=== PATIENT | female | born 1990 | race Caucasian/White ===

== ENCOUNTER 2016-07-12 12:17 | Emergency (ER) | payer OTHER ==
[~2016-07-12] VITALS: Ht 170.2 cm; Wt 112.2 kg
[~2016-07-12 12:17] MED LIST: ALPRAZOLAM0.5 MG PO; ALPRAZOLAM1 MG PO; BACLOFEN10 MG PO; CEFEPIME-D2 GM/50 ML IV; CEFTRIAXONE2 G1 IV; GABAPENTIN100 MG PO; GAS FREE125 MG PO; IRON325 MG PO; LOSARTAN POTASS50 MG PO; MULTIVITAMIN1 EAC2 PO; OXYCODONE HCL15 MG PO; OXYCODONE-APAP1 EACH PO; OXYCONTIN60 MG PO; OXYCONTIN80 MG PO; PEN-VEE K,VEET500 MG PO; RANITIDINE HCL150 MG PO; SENNA PLUS TAB1 EACH PO; SENOKOT,SENN1 TABLET PO; TOVIAZ8 MG PO; VENLAFAXINE HC150 M1 PO; VITAMIN D1000 UNIT PO; VITAMIN D31000 UNI2 PO; XARELTO1 EACH PO; ZOLOFT100 MG PO
[2016-07-12 12:52] LABS: EOSINOPHIL (%) 2.3 % (0-5); EOSINOPHIL COUNT 0.2 K/uL (0-0.3); HEMATOCRIT 35.3 % (36.0-46.0); IMMATURE GRANULOCYTE (%) 0.3 % (0.0-0.7); INSTRUMENT ABS NEUTROPHIL CT 4.9 K/uL; MCH 25.9 PG (29.0-34.0); MCHC 31.4 G/DL (30.0-36.0); MCV 82.3 FL (83-99); MEAN PLAT.VOLUME 9.1 uM^3 (9.5-12.4); MONOCYTE (%) 8.3 % (3-12); MONOCYTE COUNT 0.6 K/uL (0-0.8); NEUTROPHIL COUNT 4.9 K/uL (1.8-6.4); PLATELET COUNT 240 K/uL (156-360); RBC DIS.WIDTH-CV 14.1 % (11.8-14.6); RED BLOOD COUNT 4.29 M/uL (3.80-5.20); WHITE BLOOD COUNT 7.7 K/uL (4.1-10.2)
[2016-07-12 13:04] LABS: CHLORIDE 106 mEq/L (99-109); POTASSIUM 3.6 mEq/L (3.7-5.4); SODIUM 139 mEq/L (136-147)
[2016-07-12 13:05] LABS: GLUCOSE 103 mg/dL (70-99)
[2016-07-12 13:07] LABS: ANION GAP 9 MEQ/L (2-14)
[2016-07-12 13:09] LABS: GFR ESTIMATE (CALCULATED) > 59 mL/min/
[2016-07-12 13:10] LABS: UREA NITROGEN (BUN) 6 mg/dL (9-23)
[2016-07-12 13:11] LABS: INTER. NORMALIZED RATIO 1.1; PROTHROMBIN TIME 11.3 (9.2-11.2)
[2016-07-12 13:17] LABS: QUANTITATIVE HCG < 4.0 MIU/ML
[2016-07-12] MEDS ORDERED: TYLENOL WITH C1 EACH PO (13:27)
[2016-07-12 13:42] LABS: ADD MIUA? YES; BILIRUBIN NEGATIVE; BLOOD MODERATE; COLOR YELLOW ((YELLOW)); GLUCOSE (STRIP) NEGATIVE; KETONES NEGATIVE; LEUKOCYTES LARGE; NITRITE NEGATIVE; PROTEIN (STRIP) NEGATIVE; SPECIFIC GRAVITY 1.005 (1.000-1.030); UROBILINOGEN 0.2 MG/DL (0.2-1.0)
[2016-07-12 13:49] LABS: BUDDING YEAST 3+; UNCLASSIFIED CRYSTALS 2+ /HPF; WHITE BLOOD CELLS CLUMP MANY /HPF (0-5)
[2016-07-12] MEDS ORDERED: CIPRO500 MG PO ×3 (13:54→14:04)
[2016-07-12 14:02] LABS: BACTERIA 2+ /HPF; EPITHELIAL CELLS 1+ /HPF; MUCUS NONE SEEN /LPF; UCUL ADDED? YES; WHITE BLOOD CELLS TNTC /HPF (0-5)
[2016-07-12 14:55] VITALS: BP 133/84
== END 2016-07-12 14:55 | disposition home or self-care (01) ==
LOC: EME 12:17
PROVIDERS: Emergency Medicine
DX: K92.1 Melena (principal); R82.99 Other abnormal findings in urine; G82.20 Paraplegia, unspecified; Z96.0 Presence of urogenital implants; I10 Essential (primary) hypertension; Z87.440 Personal history of urinary (tract) infections; Z79.891 Long term (current) use of opiate analgesic; F17.200 Nicotine dependence, unspecified, uncomplicated
CPT/HCPCS: 80048; 81003; 84702; 85025; 85610; 87077; 87086; 87186; 99281; 99284

== ENCOUNTER 2016-08-10 12:01 | Inpatient (IN) | payer OTHER ==
[~2016-08-10] VITALS: Ht 170.2 cm; Wt 113.2 kg
[~2016-08-10 12:01] MED LIST changes: +CIPRO500 MG PO; +TYLENOL WITH C1 EACH PO
[2016-08-10 12:57] LABS: EOSINOPHIL (%) 4.1 % (0-5); EOSINOPHIL COUNT 0.3 K/uL (0-0.3); IMMATURE GRANULOCYTE (%) 0.3 % (0.0-0.7); INSTRUMENT ABS NEUTROPHIL CT 3.7 K/uL; LYMPHOCYTE COUNT 2.1 K/uL (1.0-2.8); MCHC 31.4 G/DL (30.0-36.0); MCV 82.7 FL (83-99); MEAN PLAT.VOLUME 9.6 uM^3 (9.5-12.4); MONOCYTE COUNT 0.3 K/uL (0-0.8); NEUTROPHIL (%) 57.4 % (45-76); NEUTROPHIL COUNT 3.7 K/uL (1.8-6.4); PLATELET COUNT 239 K/uL (156-360); RBC DIS.WIDTH-SD 41.8 % (39-53); RED BLOOD COUNT 4.23 M/uL (3.80-5.20)
[2016-08-10 12:58] LABS: WHITE BLOOD COUNT 6.4 K/uL (4.1-10.2)
[2016-08-10 13:05] LABS: CHLORIDE 108 mEq/L (99-109); POTASSIUM 3.5 mEq/L (3.7-5.4); SODIUM 141 mEq/L (136-147)
[2016-08-10 13:07] LABS: GLUCOSE 103 mg/dL (70-99)
[2016-08-10 13:08] LABS: ANION GAP 11 MEQ/L (2-14)
[2016-08-10 13:11] LABS: GFR ESTIMATE (CALCULATED) > 59 mL/min/
[2016-08-10 13:12] LABS: UREA NITROGEN (BUN) 4 mg/dL (9-23)
[2016-08-10 14:51] LABS: 6-HOUR TOBRAMYCIN 0.7 UG/ML
[2016-08-10] MEDS ORDERED: NEURONTIN300 MG PO (15:24)
[2016-08-10 16:22] VITALS: BP 114/57
[2016-08-10] MEDS ORDERED: PROMETHAZINE HC25 M1 PO (18:03)
[2016-08-10] MEDS ORDERED: NICODERM CQ1 EAC2 TD (18:06)
[2016-08-10 20:11] VITALS: BP 144/74
[2016-08-10 23:38] VITALS: BP 136/72
[2016-08-11 03:28] VITALS: BP 130/78
[2016-08-11 07:16] LABS: HEMATOCRIT 32.1 % (36.0-46.0); MCHC 31.5 G/DL (30.0-36.0); MCV 82.5 FL (83-99); MEAN PLAT.VOLUME 9.1 uM^3 (9.5-12.4); PLATELET COUNT 207 K/uL (156-360); RBC DIS.WIDTH-CV 13.9 % (11.8-14.6); RBC DIS.WIDTH-SD 41.6 % (39-53); RED BLOOD COUNT 3.89 M/uL (3.80-5.20)
[2016-08-11 07:51] LABS: ANION GAP 6 MEQ/L (2-14); CHLORIDE 106 MEQ/L (99-109); GFR ESTIMATE (CALCULATED) > 59 mL/min/; GLUCOSE 88 mg/dL (70-99); SAMPLE HEMOLYSIS CHECK 0; SAMPLE ICTERIC CHECK 0; SAMPLE LIPEMIA CHECK 0; SODIUM 139 MEQ/L (136-147); UREA NITROGEN (BUN) 6 mg/dL (9-23)
[2016-08-11 07:52] LABS: POTASSIUM 4.6 MEQ/L (3.7-5.4)
[2016-08-11 08:12] VITALS: BP 138/83
[2016-08-11 11:18] VITALS: BP 123/67
[2016-08-11 15:30] VITALS: BP 143/91
[2016-08-11 20:03] VITALS: BP 136/84
[2016-08-12 04:00] VITALS: BP 131/76
[2016-08-12 07:38] VITALS: BP 129/89
[2016-08-12 07:44] LABS: EOSINOPHIL (%) 1.9 % (0-5); EOSINOPHIL COUNT 0.1 K/uL (0-0.3); HEMATOCRIT 32.4 % (36.0-46.0); IMMATURE GRANULOCYTE (%) 0.2 % (0.0-0.7); INSTRUMENT ABS NEUTROPHIL CT 2.6 K/uL; LYMPHOCYTE COUNT 1.7 K/uL (1.0-2.8); MCH 25.6 PG (29.0-34.0); MCHC 30.6 G/DL (30.0-36.0); MCV 83.7 FL (83-99); MEAN PLAT.VOLUME 9.9 uM^3 (9.5-12.4); MONOCYTE (%) 7.9 % (3-12); MONOCYTE COUNT 0.4 K/uL (0-0.8); NEUTROPHIL COUNT 2.6 K/uL (1.8-6.4); PLATELET COUNT 183 K/uL (156-360); RBC DIS.WIDTH-CV 13.8 % (11.8-14.6); RBC DIS.WIDTH-SD 41.6 % (39-53); RED BLOOD COUNT 3.87 M/uL (3.80-5.20); WHITE BLOOD COUNT 4.8 K/uL (4.1-10.2)
[2016-08-12 08:03] LABS: ANION GAP 5 MEQ/L (2-14); CHLORIDE 105 MEQ/L (99-109); GFR ESTIMATE (CALCULATED) > 59 mL/min/; GLUCOSE 81 mg/dL (70-99); POTASSIUM 4.5 MEQ/L (3.7-5.4); SAMPLE HEMOLYSIS CHECK 0; SAMPLE ICTERIC CHECK 0; SAMPLE LIPEMIA CHECK 0; SODIUM 140 MEQ/L (136-147); UREA NITROGEN (BUN) 6 mg/dL (9-23)
[2016-08-12 12:19] VITALS: BP 152/82
[2016-08-12 15:38] VITALS: BP 169/97
[2016-08-12 20:14] VITALS: BP 122/72
[2016-08-12 23:25] VITALS: BP 159/90
[2016-08-13 03:45] LABS: ADD MIUA? YES; BILIRUBIN NEGATIVE; BLOOD SMALL; COLOR YELLOW ((YELLOW)); GLUCOSE (STRIP) NEGATIVE; KETONES NEGATIVE; LEUKOCYTES NEGATIVE; NITRITE NEGATIVE; PROTEIN (STRIP) NEGATIVE; SPECIFIC GRAVITY 1.006 (1.000-1.030); UROBILINOGEN 0.2 MG/DL (0.2-1.0)
[2016-08-13 04:00] LABS: BACTERIA RARE /HPF; EPITHELIAL CELLS RARE /HPF; MUCUS TRACE /LPF; UCUL ADDED? NO
[2016-08-13 04:07] VITALS: BP 158/64
[2016-08-13 08:33] VITALS: BP 172/93
[2016-08-13 12:05] VITALS: BP 141/89
[2016-08-13 16:03] VITALS: BP 144/65
[2016-08-13 20:26] VITALS: BP 137/85
[2016-08-14 00:01] VITALS: BP 156/97
[2016-08-14 07:00] VITALS: BP 146/95
[2016-08-14 07:19] LABS: BASOPHIL COUNT 0.1 K/uL (0-0.1); EOSINOPHIL (%) 1.6 % (0-5); EOSINOPHIL COUNT 0.1 K/uL (0-0.3); HEMATOCRIT 34.1 % (36.0-46.0); IMMATURE GRANULOCYTE (%) 0.3 % (0.0-0.7); INSTRUMENT ABS NEUTROPHIL CT 4.8 K/uL; MCH 25.7 PG (29.0-34.0); MCHC 31.7 G/DL (30.0-36.0); MEAN PLAT.VOLUME 9.4 uM^3 (9.5-12.4); MONOCYTE (%) 4.8 % (3-12); MONOCYTE COUNT 0.4 K/uL (0-0.8); NEUTROPHIL (%) 65.4 % (45-76); NEUTROPHIL COUNT 4.8 K/uL (1.8-6.4); RBC DIS.WIDTH-CV 13.4 % (11.8-14.6); RED BLOOD COUNT 4.21 M/uL (3.80-5.20)
[2016-08-14 07:25] LABS: PLATELET COUNT 248 K/uL (156-360); WHITE BLOOD COUNT 7.3 K/uL (4.1-10.2)
[2016-08-14 07:34] LABS: ANION GAP 8 MEQ/L (2-14); CHLORIDE 103 MEQ/L (99-109); GFR ESTIMATE (CALCULATED) > 59 mL/min/; GLUCOSE 81 mg/dL (70-99); POTASSIUM 4.1 MEQ/L (3.7-5.4); SAMPLE HEMOLYSIS CHECK 0; SAMPLE ICTERIC CHECK 0; SAMPLE LIPEMIA CHECK 0; SODIUM 140 MEQ/L (136-147); UREA NITROGEN (BUN) 6 mg/dL (9-23)
[2016-08-14 10:57] VITALS: BP 156/100
[2016-08-14 16:03] VITALS: BP 129/77
[2016-08-14 19:33] VITALS: BP 134/81
[2016-08-15 00:05] VITALS: BP 114/68
[2016-08-15 04:00] VITALS: BP 124/68
[2016-08-15 07:53] VITALS: BP 130/79
[2016-08-15 12:04] VITALS: BP 133/72
[2016-08-15 15:57] VITALS: BP 113/77
[2016-08-15 16:45] LABS: POINT-OF-CARE METER ID UU14188625
[2016-08-15 20:00] VITALS: BP 139/75
[2016-08-16] VITALS: BP 119/64
[2016-08-16 03:46] VITALS: BP 110/61
[2016-08-16 07:30] VITALS: BP 128/79
[2016-08-16 10:57] VITALS: BP 131/91
[2016-08-16 15:21] VITALS: BP 137/73
[2016-08-16 19:38] VITALS: BP 132/85
[2016-08-17] VITALS: BP 104/48
[2016-08-17 04:00] VITALS: BP 128/77
[2016-08-17 07:56] VITALS: BP 133/82
[2016-08-17 11:14] VITALS: BP 127/75
[2016-08-17] MEDS ORDERED: MERREM1 GM IV (13:18)
[2016-08-17 15:14] VITALS: BP 135/85
== END 2016-08-17 20:10 | disposition home health service (06) | DRG 871 ==
LOC: EME → EDBD 12:01 → EME 12:01 → 5SOUTH 14:12 → EDOF 14:12 → 5SOUTH 16:14
PROVIDERS: Emergency Medicine; Hospitalist; Internal Medicine
DX: A41.2 Sepsis due to unspecified staphylococcus (principal); L89.314 Pressure ulcer of right buttock, stage 4; M86.60 Other chronic osteomyelitis, unspecified site; R78.81 Bacteremia; G82.20 Paraplegia, unspecified; L89.890 Pressure ulcer of other site, unstageable; N39.0 Urinary tract infection, site not specified; L89.610 Pressure ulcer of right heel, unstageable; G89.29 Other chronic pain; I10 Essential (primary) hypertension; M54.9 Dorsalgia, unspecified; F32.9 Major depressive disorder, single episode, unspecified; I89.0 Lymphedema, not elsewhere classified; B37.9 Candidiasis, unspecified; K21.9 Gastro-esophageal reflux disease without esophagitis; I87.8 Other specified disorders of veins; G89.4 Chronic pain syndrome; F17.200 Nicotine dependence, unspecified, uncomplicated; E87.6 Hypokalemia; G43.909 Migraine, unspecified, not intractable, without status migrainosus; Z96.0 Presence of urogenital implants; Z88.1 Allergy status to other antibiotic agents; Z91.048 Other nonmedicinal substance allergy status; Z86.718 Personal history of other venous thrombosis and embolism; Z88.8 Allergy status to other drugs, medicaments and biological substances
CPT/HCPCS: 71010; 80048; 80200; 81003; 82565; 82948; 84520; 85025; 85027; 87040; 99281; 99285; A6260; J0690; J0692; J1200; J1644; J1650; J2020; J2185; J2250; J2405; J3010; J3260; J3480; J7030; J7050; Q0169; S0020

== ENCOUNTER 2016-08-24 10:39 | Day surgery (SDC) | payer OTHER ==
[~2016-08-24] VITALS: Ht 167.6 cm; Wt 117.3 kg
[2016-08-24 10:37] VITALS: BP 139/93
[~2016-08-24 10:39] MED LIST changes: +MERREM1 GM IV; +NEURONTIN300 MG PO; +NICODERM CQ1 EAC2 TD; +PROMETHAZINE HC25 M1 PO
[2016-08-24 16:45] VITALS: BP 133/86
[2016-08-24 20:12] VITALS: BP 135/79
[2016-08-24 23:43] VITALS: BP 109/64
[2016-08-25 03:37] VITALS: BP 115/62
[2016-08-25 08:00] VITALS: BP 124/77
== END 2016-08-25 16:26 | disposition home or self-care (01) ==
LOC: SDC 10:39 → 2SOUTH 14:50 → 2EAST 14:50 → SDC 15:05 → 2EAST 16:35
DX: L89.314 Pressure ulcer of right buttock, stage 4 (principal); G82.20 Paraplegia, unspecified; Z87.828 Personal history of other (healed) physical injury and trauma; Z87.440 Personal history of urinary (tract) infections; L89.610 Pressure ulcer of right heel, unstageable; L89.620 Pressure ulcer of left heel, unstageable; I89.0 Lymphedema, not elsewhere classified; I10 Essential (primary) hypertension; Z86.718 Personal history of other venous thrombosis and embolism; F17.210 Nicotine dependence, cigarettes, uncomplicated; K21.9 Gastro-esophageal reflux disease without esophagitis
CPT/HCPCS: 87070; 87075; 87205; 88304; A6260; G0378; J0330; J0690; J1100; J1650; J2185; J2250; J2405; J2710; J3010; J7050

== ENCOUNTER → 2016-12-14 | Outpatient (CLI) | payer OTHER ==
[~2016-12-14] VITALS: Ht 144.8 cm; Wt 112.0 kg
[~2016-12-14] MED LIST changes: +CEFEPIME HCL2 GM IV; +XARELTO15 MG PO
[2016-12-14 08:57] VITALS: BP 100/63
== END | disposition home or self-care (01) ==
LOC: IVINF 06:56
DX: Z45.2 Encounter for adjustment and management of vascular access device (principal)
CPT/HCPCS: 36593; J2997

== ENCOUNTER 2017-03-03 17:51 | Day surgery (SDC) | payer OTHER ==
[~2017-03-03] VITALS: Ht 167.6 cm; Wt 118.8 kg
[2017-03-03 18:56] LABS: HEMATOCRIT 38.3 % (36.0-46.0); MCH 27.8 PG (29.0-34.0); MCHC 33.4 G/DL (30.0-36.0); MCV 83.3 FL (83-99); MEAN PLAT.VOLUME 9.1 uM^3 (9.5-12.4); PLATELET COUNT 239 K/uL (156-360); RBC DIS.WIDTH-CV 13.4 % (11.8-14.6); RBC DIS.WIDTH-SD 40.1 % (39-53); WHITE BLOOD COUNT 12.1 K/uL (4.1-10.2)
[2017-03-03 19:11] LABS: CHLORIDE 106 mEq/L (99-109); POTASSIUM 4.4 mEq/L (3.7-5.4); SODIUM 138 mEq/L (136-147)
[2017-03-03 19:13] LABS: GLUCOSE 87 mg/dL (70-99)
[2017-03-03 19:15] LABS: ANION GAP 7 MEQ/L (2-14); TOTAL BILIRUBIN 0.2 mg/dL (0.0-1.0)
[2017-03-03 19:17] LABS: ALKALINE PHOSPHATASE 88 IU/L (3-129); GFR ESTIMATE (CALCULATED) > 59 mL/min/
[2017-03-03 19:18] LABS: UREA NITROGEN (BUN) 8 mg/dL (9-23)
[2017-03-03 19:19] LABS: QUANTITATIVE HCG < 4.0 MIU/ML
[2017-03-03 22:20] LABS: ADD MIUA? YES; BILIRUBIN NEGATIVE; BLOOD NEGATIVE; COLOR YELLOW ((YELLOW)); GLUCOSE (STRIP) NEGATIVE; KETONES NEGATIVE; LEUKOCYTES MODERATE; NITRITE NEGATIVE; PROTEIN (STRIP) NEGATIVE; UROBILINOGEN 0.2 MG/DL (0.2-1.0)
[2017-03-03 22:37] LABS: BACTERIA RARE /HPF; EPITHELIAL CELLS 1+ /HPF; MUCUS TRACE /LPF; UCUL ADDED? YES
[2017-03-03 22:58] LABS: SPECIFIC GRAVITY 1.064 (1.000-1.030)
[2017-03-04 02:14] VITALS: BP 129/60
[2017-03-04 03:54] VITALS: BP 106/56
[2017-03-04 08:49] VITALS: BP 105/55
[2017-03-04 09:03] VITALS: BP 115/60
[2017-03-04 12:20] VITALS: BP 112/62
[2017-03-04 16:23] VITALS: BP 136/73
== END 2017-03-04 18:25 | disposition home or self-care (01) ==
LOC: EME 17:51 → SDC 23:59 → 2SOUTH 03-04 00:18 → ENRESERV 03-04 00:20 → CANRESERV 03-04 00:20 → ENRESERV 03-04 00:25 → 3EAST 03-04 02:10
PROC: 0DTJ0ZZ Resection of Appendix, Open Approach (ICD-10-PCS; principal; 2017-03-04)
DX: K35.80 Unspecified acute appendicitis (principal); G82.20 Paraplegia, unspecified; L97.529 Non-pressure chronic ulcer of other part of left foot with unspecified severity; F41.8 Other specified anxiety disorders; K21.9 Gastro-esophageal reflux disease without esophagitis; I10 Essential (primary) hypertension; Z87.828 Personal history of other (healed) physical injury and trauma; Z88.1 Allergy status to other antibiotic agents; F17.210 Nicotine dependence, cigarettes, uncomplicated; Z87.440 Personal history of urinary (tract) infections; I87.8 Other specified disorders of veins
CPT/HCPCS: 71010; 73630; 74177; 80053; 81003; 83605; 84702; 85027; 87040; 87077; 87086; 87186; 88304; 99281; 99285; G0378; J0744; J1170; J1335; J1644; J2270; J3010; J7030; J7050; J7120; S0030

== ENCOUNTER 2017-03-09 19:33 | Emergency (ER) | payer OTHER ==
[~2017-03-09] VITALS: Ht 167.6 cm; Wt 110.5 kg
[2017-03-09 21:12] LABS: HEMATOCRIT 37.6 % (36.0-46.0); MCH 27.7 PG (29.0-34.0); MCHC 32.7 G/DL (30.0-36.0); MCV 84.7 FL (83-99); MEAN PLAT.VOLUME 9.3 uM^3 (9.5-12.4); PLATELET COUNT 301 K/uL (156-360); RBC DIS.WIDTH-CV 13.6 % (11.8-14.6); RBC DIS.WIDTH-SD 42.1 % (39-53); RED BLOOD COUNT 4.44 M/uL (3.80-5.20); WHITE BLOOD COUNT 10.2 K/uL (4.1-10.2)
[2017-03-09 21:24] LABS: CHLORIDE 107 mEq/L (99-109); SODIUM 138 mEq/L (136-147)
[2017-03-09 21:26] LABS: GLUCOSE 89 mg/dL (70-99)
[2017-03-09 21:27] LABS: ANION GAP 7 MEQ/L (2-14)
[2017-03-09 21:30] LABS: GFR ESTIMATE (CALCULATED) > 59 mL/min/
[2017-03-09 21:31] LABS: UREA NITROGEN (BUN) 7 mg/dL (9-23)
[2017-03-09 23:21] VITALS: BP 117/79
[2017-03-10] MEDS ORDERED: BACTRIM,SEPT1 TABLET PO (19:20)
== END 2017-03-09 23:24 | disposition home or self-care (01) ==
LOC: EME 19:33
PROVIDERS: Emergency Medicine
DX: N39.0 Urinary tract infection, site not specified (principal); Z16.10 Resistance to unspecified beta lactam antibiotics; G89.18 Other acute postprocedural pain; F17.200 Nicotine dependence, unspecified, uncomplicated; G82.20 Paraplegia, unspecified; V89.2XXS Person injured in unspecified motor-vehicle accident, traffic, sequela; Z87.440 Personal history of urinary (tract) infections; K21.9 Gastro-esophageal reflux disease without esophagitis; F41.9 Anxiety disorder, unspecified; F32.9 Major depressive disorder, single episode, unspecified; Z91.040 Latex allergy status; Z91.09 Other allergy status, other than to drugs and biological substances; Z88.0 Allergy status to penicillin; Z88.1 Allergy status to other antibiotic agents
CPT/HCPCS: 80048; 83605; 85027; 87040; 99281; 99284; J1580; J2997; J7050